=== PATIENT | male | born 1960 | race Caucasian/White ===

== ENCOUNTER → 2017-02-15 | Outpatient (CLI) | payer OTHER ==
[~2017-02-15] MED LIST: CIPRO PO; COREG3.125 MG PO; FLAGYL PO; GLUCOPHAGE500 M1 PO; LOTREL 10-20 MG1 CAP PO; LOTREL 10/20 MG1 CAP PO; NAPROSYN-EC500 M1 PO; NEURONTIN PO; NEURONTIN300 MG PO; NORPRAMIN PO; OXYCODON HCL-1 UDTA1 PO; OXYCONTIN PO; OXYCONTIN30 MG PO; PERCOCET10 PO; PRILOSEC20 MG PO; TRADJENTA5 MG PO; TRICOR145 MG PO; ZANAFLEX4 M1 PO; ZOCOR20 MG PO
--- NOTE | ~2017-02-15 | CT2 ---
[facility] A Service [facility] RADIOLOGY TEXT RESULTS PATIENT: ALESSANDRO CAAL LOCATION: [facility] : 64 UNIT #: [id number] AGE: [address]: Mikey Beltran MD SEX: M ORDER DR: [id number] [facility] [address]. [place], [place] [address] [id number] O MR#: [id number] [facility] #: [id number] NAME: ALESSANDRO CAAL : 1960 SEX: M STUDY DATE/TIME: 02/15/2017 14:10 UNIT: [facility] ROOM: STUDY DESCRIPTION: CT Abd and Pelv W Cont Attending Physician: Mikey Beltran M.D. Referring Physician: Mikey Beltran M.D. Ordering Physician: Mikey Beltran M.D. Primary Care Physician: Oliver Contreras M.D. MEDICAL IMAGING REPORT This report is preliminary unless electronic signature is present EXAM CT abdomen and pelvis INDICATIONS Upper abdominal pain and abdominal pressure. Mid-abdomen pain for 2 years. Abdominal hernia. TECHNIQUE CT of the abdomen and pelvis with oral and IV contrast (100 mL Isovue-370 IV contrast). Coronal and sagittal reconstructions were obtained. This CT exam was performed with one or more of the following radiation dose reduction techniques: automatic exposure control, adjustment of mA and/or kV according to patient size, and iterative reconstruction. COMPARISON CT abdomen and pelvis dated 02/13/2014. FINDINGS ABDOMEN: The liver is enlarged. Gallbladder is mildly distended. There is diffuse hepatic steatosis. The spleen and adrenal glands and kidneys are within normal limits. The bowel is not dilated. The appendix is normal. The abdominal aorta is normal in caliber. PELVIS: No pelvic mass. There are 2 peripherally calcified nodules adjacent to the sigmoid mesentery. These are of uncertain etiology, however have a benign appearance. Bladder is unremarkable. No enlarged pelvic or inguinal lymph nodes. No acute osseous abnormalities. [facility] A Service [facility] RADIOLOGY TEXT RESULTS PATIENT: ALESSANDRO CAAL [facility] [id number] : [birth year] UNIT #: [id number] AGE: [address]: Mikey Beltran MD SEX: M ORDER DR: IMPRESSION 1. No acute findings in the abdomen and pelvis. 2. Hepatic steatosis. 3. Mild gallbladder distension. This is a nonspecific finding and may simply be related to a true prolonged fasting. If there are symptoms related to the right upper quadrant, consider further evaluation with an ultrasound. 4. Small incisional-type hernia near the umbilicus. No complicating features. Dictated by... Alfie Forbes M.D. THIS IS AN ELECTRONICALLY VERIFIED REPORT Alfie Forbes M.D. at 02/16/2017 8:41 AM MEHRDAD/nikole TD: 02/15/2017 21:28 JOB #: [id number] MEDICAL IMAGING REPORT Page 1 of 1 COPY
[2017-02-15 17:26] LABS: POC - CREATININE 0.94 mg/dL (0.64-1.27); POC - GFR >60.0 mL/min (>60)
== END | disposition home or self-care (01) ==
LOC: CCAT 12:49
PROVIDERS: Surgery
DX: R10.10 Upper abdominal pain, unspecified (principal); K76.0 Fatty (change of) liver, not elsewhere classified; K82.8 Other specified diseases of gallbladder
CPT/HCPCS: 74177; 82565; Q9967

== ENCOUNTER → 2017-03-01 | Outpatient (CLI) | payer OTHER ==
--- NOTE | ~2017-03-01 | US6 ---
[facility] A Service [facility] RADIOLOGY TEXT RESULTS PATIENT: ALESSANDRO CAAL LOCATION: [facility] : 64 UNIT #: [id number] AGE: [address]: Mikey Beltran MD SEX: M ORDER DR: [id number] [place] [id number] [facility]. [place], [place] [address] [id number] O MR#: [id number] Acc #: [id number] NAME: ALESSANDRO CAAL : 1960 SEX: M STUDY DATE/TIME: 03/01/2017 10:28 UNIT: [facility] ROOM: STUDY DESCRIPTION: US Abdominal Limited Attending Physician: Mikey Beltran M.D. Referring Physician: Mikey Beltran M.D. Ordering Physician: Mikey Beltran M.D. Primary Care Physician: Oliver Contreras M.D. MEDICAL IMAGING REPORT This report is preliminary unless electronic signature is present EXAM Right upper quadrant abdominal ultrasound. INDICATION Right upper quadrant abdominal pain for the past several years worsening over the past two weeks. PROCEDURE Pardo-scale and Doppler imaging right upper quadrant of the abdomen. COMPARISON CT from 02/15/2017. FINDINGS Majority of the pancreas obscured by bowel gas. The visualized portions are unremarkable. Liver is difficult to evaluate but shows increase in coarsened echotexture. Liver measures 19.6 cm in length. Right kidney measures 12 cm and is unremarkable. Unremarkable gallbladder. Common duct measures 4-5 mm. There is a 2.7 cm hypoechoic lesion in the liver adjacent to the gallbladder. Second hypoechoic lesion adjacent to the gallbladder measures up to 3.1 cm. Common duct measures 3 mm. IMPRESSION 1. Hepatomegaly with steatosis. 2. Two hypoechoic lesions in the liver adjacent to the gallbladder, not well seen on the 02/15/2017 CT. They may represent areas of focal fatty sparing, but recommend evaluation with either liver protocol MRI or CT. Dictated by... Cooper Sanders M.D. [facility] A Service [facility] RADIOLOGY TEXT RESULTS PATIENT: ALESSANDRO CAAL LOCATION: [facility] #: [id number] : [birth year] UNIT #: [id number] AGE: [address]: Mikey Beltran MD SEX: M ORDER DR: THIS IS AN ELECTRONICALLY VERIFIED REPORT Cooper Sanders M.D. at 03/02/2017 7:16 AM LEANNE/chelsy TD: 03/01/2017 18:46 JOB #: [id number] MEDICAL IMAGING REPORT Page 1 of 1 COPY
== END | disposition home or self-care (01) ==
LOC: CGUS 10:07
DX: R10.9 Unspecified abdominal pain (principal); K76.0 Fatty (change of) liver, not elsewhere classified; R16.0 Hepatomegaly, not elsewhere classified; K76.89 Other specified diseases of liver
CPT/HCPCS: 76705

== ENCOUNTER → 2017-03-08 | Outpatient (CLI) | payer OTHER ==
--- NOTE | ~2017-03-08 | CT6 ---
[facility] A Service of [facility] & [facility] RADIOLOGY TEXT RESULTS PATIENT: ALESSANDRO CAAL [facility] 64 UNIT #: [id number] AGE: [address]: Mikey Beltran MD SEX: M ORDER DR: [id number] [facility] [address]. [place], [place] [address] [id number] O MR#: [id number] [facility] #: [id number] NAME: ALESSANDRO CAAL : 1960 SEX: M STUDY DATE/TIME: 03/08/2017 08:55 UNIT: [facility] ROOM: STUDY DESCRIPTION: CT Abdomen WWo Cont Attending Physician: Mikey Beltran M.D. Referring Physician: Mikey Beltran M.D. Ordering Physician: Mikey Beltran M.D. Primary Care Physician: Oliver Contreras M.D. MEDICAL IMAGING REPORT This report is preliminary unless electronic signature is present EXAM CT abdomen and pelvis without and with contrast, 03/08/2017, 0855 hours. CLINICAL HISTORY 56-year-old man with chronic right upper quadrant pain for several years worsening over last 2 weeks. Evaluate 2 hypoechoic areas seen on ultrasound liver 03/01/2017. Multiphase liver CT requested. COMPARISON Ultrasound abdomen 03/01/2017, and CT abdomen 02/15/2017. TECHNIQUE Helical noncontrasted images were obtained through the abdomen. Postcontrast arterial phase, portal venous phase and delayed venous phase imaging were performed as well as 5-minute delayed faded missing through the abdomen. Sagittal and coronal reconstructions were performed. FINDINGS Precontrast imaging demonstrates mild hepatomegaly with normal-sized spleen. The gallbladder is contracted without stones or wall thickening. The noncontrasted exam demonstrates a 2.4 cm area of relative increased density in the liver abutting the fundus of the gallbladder in the general vicinity of 1 of the hypoechoic areas on prior ultrasound. The liver is otherwise isodense to the spleen. There is perhaps slight hyperdensity along the posterior margin of the gallbladder within the liver measuring 3.2 cm which could correspond to the second area of hypoechoic change on the ultrasound. The postcontrast multiphase imaging demonstrates no liver lesion. The liver is isodense throughout. The spleen, pancreas, gallbladder, bile ducts, adrenal glands and kidneys are normal. No abnormality is seen in the stomach, small bowel or visualized portions of the colon. [facility]. [facility] A Service of [facility] RADIOLOGY TEXT RESULTS PATIENT: ALESSANDRO CAAL LOCATION: [facility] : 64 UNIT #: [id number] AGE: [address]: Mikey Beltran MD SEX: M ORDER DR: IMPRESSION 1. There is hepatomegaly. The precontrast images suggests subtle hyperdensity in the liver, near the fundus of the gallbladder as well as along the posterior wall of the gallbladder, corresponding to the areas of hypoechoic change on ultrasound. These areas are poorly defined certainly less well defined than that seen on ultrasound and most likely represent areas of sparing of fatty change. The liver is generally isodense to the spleen suggesting mild diffuse fatty change. The multiphase postcontrast imaging demonstrates no enhancing lesion or suspicious lesion. 2. The gallbladder is contracted with no stones or sludge. 3. No abnormality seen elsewhere in the upper abdomen. Dictated by... Svitlana Avina M.D. THIS IS AN ELECTRONICALLY VERIFIED REPORT Svitlana Avina M.D. at 03/09/2017 9:22 AM KENDRA/miles TD: 03/08/2017 16:18 JOB #: [id number] MEDICAL IMAGING REPORT Page 1 of 1 COPY
== END | disposition home or self-care (01) ==
LOC: CCAT 07:51
DX: R16.0 Hepatomegaly, not elsewhere classified (principal); K82.0 Obstruction of gallbladder
CPT/HCPCS: 74170; Q9967